=== PATIENT | male | born 1955 | race Caucasian/White ===

== ENCOUNTER 2016-09-13 21:41 | Emergency (ER) | payer BC ==
[~2016-09-13] VITALS: Ht 182.9 cm; Wt 79.4 kg
--- NOTE | ~2016-09-13 | EKG ---
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
[2016-09-13] MEDS ORDERED: LEVOTHYROXIN0.125 M1 (21:48)
[2016-09-13] MEDS ORDERED: ALLOPURINOL 10100 M1 PO (22:05)
[2016-09-13 22:22] LABS: ABSOLUTE NEUTROPHILS 4.8 thou/uL (1.4-8.2); EOSINOPHILS 4.1 % (0.0-3.0); HEMATOCRIT 46.8 % (42.0-52.0); HEMOGLOBIN 16.5 gm/dL (14.0-18.0); LYMPHOCYTES 28.1 % (24.0-44.0); MCH 31.4 pg (26.0-34.0); MCHC 35.2 % (28.0-37.0); MCV 89.2 fL (80.0-100.0); MONOCYTES 7.8 % (1.0-8.0); PLATELET COUNT 196 thou/uL (150-400); RBC 5.25 mil/uL (4.50-6.00); RDW 12.6 % (10.5-14.5); WBC 8.1 thou/uL (4.0-11.0)
[2016-09-13 22:28] LABS: ANION GAP 7 mmol/L (7-16); BUN 23 mg/dL (7-18); CHLORIDE 100 mmol/L (98-107); CO2 32 mmol/L (21-32); CREATININE 1.1 mg/dL (0.6-1.3); GLUCOSE 163 mg/dL (70-99); POTASSIUM 3.9 mmol/L (3.5-5.1); SODIUM 139 mmol/L (136-145)
[2016-09-13 22:32] LABS: MANUAL DIFF NO
[2016-09-13 22:37] LABS: ALBUMIN 3.8 g/dL (3.4-5.0); ALKALINE PHOSPHATASE 37 U/L (46-116); SGOT 34 U/L (15-37); SGPT 46 U/L (30-65); TOTAL BILIRUBIN 0.4 mg/dL (<0.1-1.0); TOTAL PROTEIN 6.7 g/dL (6.4-8.2); TROPONIN-I < 0.04 ng/mL (<0.04-0.07)
[2016-09-13] MEDS ORDERED: PANTOPRAZOLE SO40 M1 PO (22:41)
[2016-09-13] MEDS ORDERED: CARAFATE 1 GM TA1 G1 PO (22:41)
[2016-09-13 23:29] VITALS: BP 135/82
== END 2016-09-13 23:32 | disposition home or self-care (01) ==
LOC: ER 21:41
PROVIDERS: Emergency Medicine
DX: R07.82 Intercostal pain (principal)

== ENCOUNTER 2018-11-05 01:06 | Emergency (ER) | payer OTHER ==
[~2018-11-05] VITALS: Ht 182.9 cm; Wt 79.4 kg
[~2018-11-05 01:06] MED LIST: ALLOPURINOL 10100 M1 PO; CARAFATE 1 GM TA1 G1 PO; LEVOTHYROXIN0.125 M1; PANTOPRAZOLE SO40 M1 PO
[2018-11-05 01:50] LABS: ABSOLUTE NEUTROPHILS 6.6 thou/uL (1.4-8.2); BASOPHILS 0.4 % (0.0-2.0); EOSINOPHILS 2.3 % (0.0-3.0); HEMATOCRIT 48.3 % (42.0-52.0); HEMOGLOBIN 17.1 gm/dL (14.0-18.0); LYMPHOCYTES 20.5 % (24.0-44.0); MCH 31.6 pg (26.0-34.0); MCHC 35.3 g/dL (28.0-37.0); MCV 89.5 fL (80.0-100.0); MONOCYTES 9.7 % (1.0-8.0); PLATELET COUNT 169 thou/uL (150-400); POLYS 67.1 % (36.0-66.0); RDW 13.1 % (10.5-14.5); WBC 9.9 thou/uL (4.0-11.0)
[2018-11-05 01:52] LABS: ANION GAP 10 mmol/L (7-16); BUN 21 mg/dL (7-18); CALCIUM 9.2 mg/dL (8.5-10.1); CHLORIDE 99 mmol/L (98-107); CO2 28 mmol/L (21-32); CREATININE 1.1 mg/dL (0.7-1.3); GLUCOSE 181 mg/dL (74-106); POTASSIUM 3.5 mmol/L (3.5-5.1); SODIUM 137 mmol/L (136-145)
[2018-11-05 02:01] LABS: ALBUMIN 3.8 g/dL (3.4-5.0); DIRECT BILIRUBIN 0.1 mg/dL (<0.1-0.3); LIPASE 139 U/L (73-393); SGOT 20 U/L (15-37); SGPT 34 U/L (30-65); TOTAL BILIRUBIN 0.5 mg/dL (<0.1-1.0); TOTAL PROTEIN 6.8 g/dL (6.4-8.2); TROPONIN-I <0.06 ng/mL (<0.06)
[2018-11-05 04:52] VITALS: BP 139/82
--- NOTE | 2018-11-05 08:39 | EKG ---
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 : 1955 Requested By: Kellie Bello Order Number: [id number] MD: Mario Argueta Measurements Intervals [place] Rate: 62 P: 59 [place]: 154 QRS: 74 QRSD: 94 T: 61 QT: 397 QTc: 404 Interpretive Statements Sinus rhythm No significant abnormality Baseline wander in lead(s) V6 Compared to ECG 09/13/2016 21:45:45 No significant changes Electronically Signed On 11-05-2018 8:39:28 [employer] 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 ��������������������������������������������� 11/05/18 0839 [id number] 5 Mario Argueta MD, FACC /EPI
== END 2018-11-05 04:35 | disposition home or self-care (01) ==
LOC: ER 01:06
PROVIDERS: Emergency Medicine
DX: K21.9 Gastro-esophageal reflux disease without esophagitis (principal); R07.89 Other chest pain; E07.9 Disorder of thyroid, unspecified

== ENCOUNTER 2018-11-18 09:09 | Emergency (ER) | payer OTHER ==
[~2018-11-18] VITALS: Ht 182.9 cm; Wt 79.4 kg
[2018-11-18 09:40] LABS: ABSOLUTE NEUTROPHILS 6.1 thou/uL (1.4-8.2); BASOPHILS 0.4 % (0.0-2.0); EOSINOPHILS 3.2 % (0.0-3.0); HEMATOCRIT 48.4 % (42.0-52.0); HEMOGLOBIN 16.9 gm/dL (14.0-18.0); LYMPHOCYTES 18.6 % (24.0-44.0); MCH 31.2 pg (26.0-34.0); MCHC 34.8 g/dL (28.0-37.0); MCV 89.6 fL (80.0-100.0); MONOCYTES 7.7 % (1.0-8.0); PLATELET COUNT 281 thou/uL (150-400); POLYS 70.1 % (36.0-66.0); RDW 12.9 % (10.5-14.5); WBC 8.7 thou/uL (4.0-11.0)
[2018-11-18 09:48] LABS: URINE BILIRUBIN NEGATIVE (Negative); URINE BLOOD 1+ (Negative); URINE CLARITY CLEAR; URINE COLOR YELLOW; URINE GLUCOSE-RANDOM* NEGATIVE (Negative); URINE KETONES NEGATIVE (Negative); URINE LEUKOCYTES-REFLEX NEGATIVE (Negative); URINE NITRITE-REFLEX NEGATIVE (Negative); URINE PROTEIN (DIPSTICK) NEGATIVE (Negative); URINE UROBILINOGEN 0.2 E.U./dl (0.2-1.0)
[2018-11-18 10:06] LABS: BACTERIA-REFLEX 1-9 Few /HPF (None Seen); CASTS None Seen /LPF (None Seen); CRYSTALS None Seen /LPF (None Seen); SQUAMOUS None Seen /LPF (0-3); URINE RBC 0-2 Rare /HPF (0-2); URINE WBC-REFLEX 0-5 Rare /HPF (0-5)
[2018-11-18 10:09] LABS: CALCIUM 8.9 mg/dL (8.5-10.1); POTASSIUM 4.1 mmol/L (3.5-5.1)
[2018-11-18 10:15] LABS: ALBUMIN 3.2 g/dL (3.4-5.0); TOTAL BILIRUBIN 0.4 mg/dL (<0.1-1.0); TOTAL PROTEIN 6.4 g/dL (6.4-8.2)
[2018-11-18] MEDS ORDERED: IBUPROFEN 600600 M1 PO (12:40)
[2018-11-18] MEDS ORDERED: SENNA-DOCUSATE1 EAC1 PO (12:40)
[2018-11-18] MEDS ORDERED: HYDROCODONE-AP1 EAC6 PO (12:40)
[2018-11-18] MEDS ORDERED: ZOFRAN ODT4 MG PO (12:40)
[2018-11-18 13:00] VITALS: BP 128/74
== END 2018-11-18 13:00 | disposition home or self-care (01) ==
LOC: ER 09:09
PROVIDERS: Emergency Medicine
DX: K80.50 Calculus of bile duct without cholangitis or cholecystitis without obstruction (principal)

== ENCOUNTER 2019-12-22 05:38 | Emergency (ER) | payer OTHER ==
[~2019-12-22] VITALS: Ht 182.9 cm; Wt 80.3 kg
[~2019-12-22 05:38] MED LIST changes: +HYDROCODONE-AP1 EAC6 PO; +IBUPROFEN 600600 M1 PO; +SENNA-DOCUSATE1 EAC1 PO; +ZOFRAN ODT4 MG PO
[2019-12-22 05:43] VITALS: BP 179/89
== END 2019-12-22 06:40 | disposition home or self-care (01) ==
LOC: ER 05:38
DX: S61.210A Laceration without foreign body of right index finger without damage to nail, initial encounter (principal); Z98.890 Other specified postprocedural states; Z79.899 Other long term (current) drug therapy; W26.0XXA Contact with knife, initial encounter; Y93.89 Activity, other specified; Y92.89 Other specified places as the place of occurrence of the external cause; Y99.8 Other external cause status